=== PATIENT | female | born 1950 | race Caucasian/White ===

== ENCOUNTER 2021-12-02 11:20 | Emergency (ER) | payer MEDICARE, BC ==
[~2021-12-02] VITALS: Ht 160 cm; Wt 68.0 kg
--- NOTE | 2021-12-02 12:04 | NUR ---
Patient discharged to home in stable condition. Written and verbal after care instructions given. Patient verbalizes understanding of instructions. Stressed follow up or return to ER for worsening s/s.
[2021-12-02] MEDS ORDERED: MUPI22OI2 TP (12:05)
[2021-12-02] MEDS ORDERED: SULF1TAB48 PO (12:05)
== END 2021-12-02 12:16 | disposition home or self-care (01) ==
LOC: ER 11:20
DX: J34.0 Abscess, furuncle and carbuncle of nose (principal); E11.9 Type 2 diabetes mellitus without complications
CPT/HCPCS: 70450; A4663